=== PATIENT | male | born 2000 | race Caucasian/White ===

== ENCOUNTER 2019-01-09 19:41 | Inpatient (IN) | payer BC, OTHER ==
--- NOTE | 2019-01-09 19:43 | EDPHY ---
H & P Time Seen by Provider: 01/09/19 19:38 Constitutional: Initial Vital Signs Temperature (C) 36.7 C 01/09/19 19:41 Heart Rate 82 01/09/19 19:41 Respiratory Rate 16 01/09/19 19:41 Blood Pressure 168/84 H 01/09/19 19:41 O2 Sat (%) 98 01/09/19 19:41 O2 Delivery Mode Room Air Allergies/Adverse Reactions: No Known Allergies Allergy (Verified 01/10/19 08:30) Medical Decision Making ED Course/Re-evaluation: CHIEF COMPLAINT: Psychiatric evaluation HISTORY OF PRESENT ILLNESS: The patient is a 18 y/o male with a history of depression and suicide attempts arriving via EMS after a suicide attempt today. For the last 4 months the patient has felt more depressed and increased suicidal ideations. The patient has been home from school ([employer]) for 2 days. Last night he took #20 0.5mg tabs of Clonazepam and #2 Tylenol PM as he was "trying to hurt" himself. This morning his parents noted that the patent was groggy and slept most of the day. His parents had a hard time waking the patient up today, so they called EMS. EMS noted that the patient had stable vital signs. No fever, headache, body aches, lightheadedness, chest pain, heart palpitations, shortness of breath , cough, abdominal pain, urinary or bowel complaints, numbness, paresthesias. REVIEW OF SYSTEMS: A comprehensive 10 system review of systems is otherwise negative aside from elements mentioned in the history of present illness and medical decision making. PHYSICAL EXAM: General Appearance: Alert, well hydrated, appropriate, and non-toxic appearing. Head: Atraumatic without scalp tenderness or obvious injury Eyes: Pupils equal, round, reactive to light and accommodation, EOMI, no trauma , no injection. Ears: Clear bilaterally, no perforation, normal landmarks Nose: Atraumatic, no rhinorrhea, clear. Throat: There is no erythema or exudates, no lesions, normal tonsils, mucus membranes moist. Neck: Supple, 2+ carotid upstroke, nontender, no lymphadenopathy. Respiratory: No retractions, no distress, no wheezes, and no accessory muscle use. Lungs are clear to auscultation bilaterally. Cardiovascular: Regular rate and rhythm, no murmurs, rubs, or gallops. Bilateral carotid, radial, dorsalis pedis, and posterior tibial pulses intact. Good capillary refill all extremities. Gastrointestinal: Abdomen is soft, nontender, non-distended, no masses, no rebound, no guarding, no peritoneal signs. Musculoskeletal: Normal active ROM of all extremities, atraumatic. Neurological: Alert, appropriate, and interactive. The patient has normal DTRs and non-focal cranial nerves, motor, sensory, and cerebellar exam. Skin: No rashes, good turgor, no nodules on palpation. Psych: Expresses suicidal ideations, flat affect. No homicidal ideations or hallucinations. 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 MEDICAL DECISION MAKING: The patient is a 18 y/o male with a history of depression and suicide attempts arriving via EMS after a suicide attempt today. Last night he took #20 0.5mg tabs of Clonazepam and #2 Tylenol PM as he was "trying to hurt" himself. This morning his parents noted that the patent was groggy and slept most of the day. On exam the patient has a flat affect and expresses suicidal ideations. Patient will be placed on an M1 hold. He is comfortable with plan for lab work. Patient is in no acute distress and is hemodynamically stable. We are awaiting psychiatric team's evaluation. Patient has known history of psychiatric disorders and is here for evaluation. Labs ordered; 2L IV NS. 2024: Patient care turned over to Dr. Hester at shift change pending mental health eval. (Landen Boogie) Other Provider: [address] Hester pending mental health evaluation. Patient has been evaluated. Plan will be for placement at [facility] in the morning. 0700 patient has been accepted to [facility] by Dr. Gilmore. I have completed the EMTALA (Jamari Pennington) - Data Points Laboratory Results: Laboratory Results 01/09/19 20:15 01/09/19 20:15 05/14/19 05/14/19 20:15 20:15 Hemoglobin A1c 4.9 % % (4.0-6.0) Estim Average Glucose 94 mg/dL mg/dL (68-126) Total Bilirubin 0.2 mg/dL mg/dL (0.1-1.4) Conjugated Bilirubin 0.2 mg/dL mg/dL (0.0-0.5) Unconjugated Bilirubin 0.0 mg/dL mg/dL (0.0-1.1) AST 30 IU/L IU/L (17-59) ALT 40 IU/L IU/L (21-72) Alkaline Phosphatase 75 IU/L IU/L (38-126) Total Protein 7.3 g/dL g/dL (6.3-8.2) Albumin 4.6 g/dL g/dL (3.5-5.0) Triglycerides 343 mg/dL H mg/dL (40-150) Cholesterol 183 mg/dL mg/dL (140-200) Cholesterol Risk Factr 1.0 (0.2-1.0) LDL Cholesterol, Calc 72 mg/dL mg/dL (60-100) LDL Risk Factor 0.8 (0.2-1.0) VLDL Cholesterol 69 mg/dL H mg/dL (8-25) Non-HDL Cholesterol 141 mg/dL H mg/dL (90-129) HDL Cholesterol 42 mg/dL mg/dL (40-70) LDL/HDL Ratio 1.72 RATIO RATIO (1.00-3.64) Cholesterol/HDL Ratio 4.36 RATIO RATIO (1.00-4.97) Medications Given: Discontinued Medications Sodium Chloride (Ns) 1,000 mls @ 0 mls/hr IV EDNOW ONE; Wide Open PRN Reason: Protocol Stop: 01/09/19 20:06 Last Admin: 01/09/19 20:11 Dose: 1,000 mls Sodium Chloride (Ns) 1,000 mls @ 0 mls/hr IV EDNOW ONE; Wide Open PRN Reason: Protocol Stop: 01/09/19 20:06 Last Admin: 01/09/19 20:11 Dose: 1,000 mls Departure - Departure Disposition: [facility] IP Clinical Impression: Suicidal ideation Intentional clonazepam overdose Qualifiers: Encounter type: initial encounter Qualified Code(s): T42.4X2A - Poisoning by benzodiazepines, intentional self-harm, initial encounter Condition: Fair Report Scribed for: Landen Boogie Report Scribed by: Samina An Date of Report: 01/09/19 Time of Report: 20:07
[2019-01-09] MEDS ORDERED: NS 1,000 ML IV ONE ×2 (20:05)
[2019-01-09 20:20] LABS: PLATELET COUNT 296 10^3/uL (150-400)
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
--- NOTE | 2019-01-10 04:30 | ASMTTCLDSP ---
TLC Discharge Disposition Disposition: Answers: Admit Disposition Notes: Notes: Admit Francine Rosario. Discharge Concerns/Recommendations: Notes: In consultation with [facility] ED physician, Maximo Pennington MD and [facility] on-call psychiatrist, Anjelica Gilmore MD, both concurred that pt appears to meet 27-65 criteria requiring psychiatric hospitalization as the patient appears to be an imminent risk of harm to self due to a mental illness condition. The patient was read the Patient Rights and Responsibilities Statement (placed on chart) and given photocopy of Rights. The patient was given the [facility] prohibited belongings list while in the ED. Was patient given the Answers: Yes Inpatient Behavioral Health Prohibited Belongings List while in the ED? For inpatient Anjelica Gilmore MD admission, the following psychiatrist agreed to accept patient for admission to Behavioral Health ([facility]): Type of Hold: Answers: M1/72-hour Hold Hold initiated by: Answers: Police Date Signed: 01/10/2019 04:29 AM Electronically Signed By:Bart Lezama
[2019-01-10] MEDS ORDERED: MAGNESIUM HYDROXIDE 30 ML UDCUP PO PRN (09:00)
[2019-01-10] MEDS ORDERED: MAG HYDROX/AL HYDROX/SIMETH 30 ML UDCUP PO PRN (09:00)
[2019-01-10] MEDS ORDERED: ACETAMINOPHEN 325 MG TAB PO PRN (09:00)
--- NOTE | 2019-01-10 11:03 | PDMN ---
Medical Necessity Medical necessity: [facility] [id number] Major Depressive Disorder, Adult: Inpatient Care, 3 days: 18 yo w/ unspecified depressive d/o, unspecified anxiety d/o, r/o ADD/ hyperactivity d/o, predominantly inattentive. On M1 hold for risk of harm to self, intentional OD. Admit IP status BEH unit.
--- NOTE | 2019-01-10 14:59 | ASMTBHMTP ---
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 He is living with his father in [place], [place]. The patient arrived via EMS on an M1 hold placed by police after patient attempted overdose via 20 Clonazepam, 5mg. Per 27-65 M1, "Pipe has been severely depressed and suicidal. Approximately three weeks prior he attempted to kill himself via drink and prescription drugs (per his father); last night or today Pipe took an unknown amount of Clonazepam (full bottle) in another attempt to end his life (as told by father). Pipe taken to [facility] The patient and his family adamantly requested that the evaluation be re-assessed and completed tomorrow due to the patient's inability to participate AEB sedated/sleeping presentation. The patient was observed intermittently falling asleep and talking lucidly with his family and this bond underwriter. The patient's family expressed significant concern for the patient's safety and well being. The patient and his father came to [place] to visit the patient's mother and brother. Per the patient's father, Amandeep, he and the patient "had the best night together" and he couldn't understand why his son attempted suicide. He reported that the patient stated he planned this attempt two weeks prior. He attempted suicide approximately four-six weeks ago via etoh and medication overdose including a video and six page letter "saying goodbye" to friends and family. The patient reportedly "past out" and did not complete. The patient had also recently started trialing sleep, anti-anxiety, and anti-depression medications with little success. The patient experienced the following side effects: visual hallucination and sleep walking. The patient began living with his father early this year when his symptoms of depression and anxiety increased. Historically, the patient was abusing etoh, diagnosed and treated for ADD, and achieving little to no sleep. The patient's father stated, "He can't stop his mind and he desperately wants to." The patient began reporting "visual snow" in June of 2018 and continues to complain of hallucination including "shadows" or "black figures." Although the patient was unable to visit a neurologist he pursued specialty care and had multiple interventions including a cat scan. The "visual snow" was so severe that the patient was unable to drive. The patient's father complained of the patient's fatigue, anhedonia, and reported him having a congoing and onsistent low heart rate and low blood pressure. He suspects that the patient will present as withdrawn and guarded in an effort to avoid bh intervention. Patient's stated presenting problems: Notes: "I can't fight off my own demons myself...my depression and anxiety". Patient's goals for treatment: Notes: 1) To establish "whether in addition to diagnosis of depression and anxiety, I may have an underlying illness...like schizophrenia or bipolar". 2) To try a new medication that would work better. Patient's strengths: Notes: When ct is feeling well he cites empathy, having a big heart, being a good people person, making people feel good" as some of his strengths. Identify supports outside of hospital: Notes: Ct cites his parents, his brother and friends are all good supports. He has tried several "psychotherapists", but has not found one that works. Discharge criteria: Notes: Suicidal ideation will resolve and ct will have a plan to safely manage recurrent suicidal ideation. Master Treatment Plan Required Signatures Psychiatrist signature: Answers: Psychiatrist: RN on-shift signature: Answers: RN: Patient signature: Answers: Patient: Date Signed: 01/10/2019 02:58 PM Electronically Signed By:Mercedez Jarrett
--- NOTE | 2019-01-10 17:14 | BAPA ---
[f rep st] ADMISSION PSYCHIATRIC ASSESSMENT DATE OF SERVICE: 01/10/2019 CHIEF COMPLAINT: " I'm just totally wiped out and at wits end." HISTORY OF PRESENT ILLNESS: Patient is a 18-year-old, male with a history of depression an d anxiety dating back to March of 2018. He states at that time, he had a "stress-induced break from reality" when he had the situation occur with a girlfriend. He states they got into an argument and that she drank an entire 5th of vodka at a alliance party. He states that he saw 1 of his friends carrying h er from the house bleeding from the mouth on the way to the hospital and that he became convinced gray t she had . He states that he went to the hospital, was not allowed to see her, and that her par ents were angry with him, and that this worsened his fears that she had and no 1 could convince him otherwise. He states that the fixed belief resolved, but that he feels like "my mind was changed after that." He states that he is "afraid I am either bipolar or schizophrenic and I'm going to be mentally ill for the rest of my life." He states that since that time, he has had pervasive anxiety and feeling anxious and worried throughout the day, and distracted from his schoolwork and other acti vities. He states that he feels more overall intensity of emotions and is more sensitive to interact ions with other people. He has also been troubled by sensory experiences such as being sensitive to light and troubled by excessive floaters in his eyes. He also reports being troubled by increasing t innitus. He believes that the doctors he has seen for these problems have essentially dismissed him and not taking him seriously, including mental health providers, whom he states, "just try 1 pill aft er another and nothing helps." He reports being treated with Adderall for attention deficit/hyperact ivity disorder and stated that this has been helpful to him over time, but is not currently helpful. He was switched from the Adderall to Concerta, but this has also not been helpful. He sees a nurse practitioner named Danna Badillo at [facility] in [place], [place]. She states that the prob lems with attention, concentration, focus, and his sensory issues have caused him to drop out of CX in the springester this year. He states that he has 6 semesters completed and that he plans to return in the fall, but is concerned that he will not be able to. In addition to these symptoms, he complains of a depressed mood throughout the day, sometimes worst in the morning, pervasive anxiet y with occasional panic attacks, "visual snow" and tinnitus, and "generally feeling physically ill l bhavana I'm dying." The physical symptoms include generalized muscular weakness and a concern he may be experiencing muscular atrophy, decreased energy and motivation, lethargy, and impotence. In addition to the symptoms, he experiences intense feelings of helplessness and hopelessness primarily related to a fear that he will remain mentally ill and some residual shame and guilt over the situation with his ex-girlfriend. The patient was brought to the hospital yesterday by his parents after they had a hard time waking up during the day. He had come to [place] to visit his mother and brother with his father from their home in [place], [place]. He had reported to be in a good mood and his father stated that they had a dakota y nice interaction the night before. The patient states that he rather impulsively took an overdose of his clonazepam and alcohol because "I had an opportunity and I took it." He agrees that he was louis ving a nice time with his family and there was no specific stressor, but that he had felt like he was "at wits end" for the past 2-3 weeks and had essentially decided to kill himself via overdose as leia n as he had got a chance. Exactly why being out of town with his family presented that chance is unc lear, and patient claims to be somewhat confused about the events at this time. He did state, alda paredes, that he had a clear expectation of dying and did not disclose the overdose but went bad. He was e xcessively sedated the next morning when his parents had trouble arousing him into the afternoon and they took him to the hospital. There, he disclosed that he had taken a month's supply of clonazepam up to 25 0.5 mg tablets. He denies taking other of his medications. Today, he states that he believ es it was "a spiritual experience" and that "I believe got intervened and saved me." He states that he also was upset by the affect that this had on his family and "I would never do anything like that again." He states he is glad he did not and that he needs to somehow figure out his physical and psychiatric issues so he can feel better. PAST PSYCHIATRIC HISTORY: Patient has previously taken Lexapro, Lunesta, and his current medicines. He thinks there may be others, but he cannot remember the names. The patient's father apparently louis s this information, but I have not been able to reach him by phone on 2 occasions today. The patient has no previous psychiatric hospitalizations and may have had a previous suicide attempt about 10 mo nths ago where he had another overdose of pills and alcohol, but he denies that this was an actual at tempt. He did, however, record a video of himself and saying goodbye to his family and wrote a suici de note, but he states that this was something he had thought about doing but did not actually do. ALLERGIES: No known medical allergies. PAST MEDICAL HISTORY: Essentially noncontributory other than the tinnitus and the floaters and his o ther physical complaints. SOCIAL HISTORY: Patient lives in a home in [place], [place] with several classmates. He has had 6 semes ters at [employer] studying communications. 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 He notes no other specific stressors at this time. He states that his father is his primar y support and describes him as his best friend. SUBSTANCE ABUSE HISTORY: Patient denies any regular use of substances other than alcohol. He states that he last smoked marijuana in October and is unable to explain why it would be positive on his urin e drug screen here. Denies any other drug use. FAMILY HISTORY: Noncontributory per patient report. ADMISSION LABORATORY: CBC is normal. Serum chemistries are normal. Liver function is normal. Trig lycerides are up at 343, but remainder of lipid profile is normal. Urine drug screen is positive for marijuana. Alcohol is less detectable. MENTAL STATUS EXAMINATION: A healthy-appearing robust male. He is pleasant and cooperativ e and interacts appropriately with the examiner. His affect is somewhat sleepy, blunted, stable, and appropriate. His mood is described as "bad." His thought process is linear and goal directed. His thought content reveals no evidence of psychosis. He is alert and oriented to person, place, time, situation, and his sensorium is clear. He denies any thoughts of suicide at this time, stating that he is glad he did not . His intellect appears to be at least average as evidenced by his educatio nal and occupational histories, fund of knowledge, and vocabulary. His insight and judgment appear t o be fair. IMPRESSION: Unspecified depressive disorder, attention deficit hyperactivity disorder by history, re cent benzodiazepine overdose, academic problems, employment problems, possible financial problems, po ssible alcohol use disorder. 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 He states that he did this on purpose with th e expectation of dying due to reasons that are somewhat unclear. He states that he has been sufferin g since the events that occurred last March and that this has gotten worse over the last several wee ks. He may have had another overdose in the recent past and this definitely seemed concerning given the fact that he had a suicide note and a suicide video. He minimizes this. He does not believe gray t his medicines have been helpful now or in the past and states that nothing has seemed to make a dif ference. PLAN: 1. Admit to behavior health services inpatient unit on M1 hold. 2. I will obtain collateral information from patient's family as soon as I can contact them. I have called his father twice at the number supplied and it rings 7 or 8 times, but it does not go to [employer] email. Will also contact the patient's outpatient provider, Abigail Badillo in [place], [place], and see if she has useful information. 3. Will place patient on suicide precautions and monitor for any acts of self-harm; though, he kaley bradshaw is cooperative and interactive. 4. Will hold medications today, as she had this overdose just yesterday; though, may consider restar ting them tomorrow if this is the preferred plan by the patient and his outpatient provider. Will en migue patient in individual, group, and milieu psychotherapies, as well as family therapy to better un derstand the origins of some of these self-destructive impulses and plot a course for the future. ESTIMATED LENGTH OF STAY: 3-5 days. /[id number]/MODL
[2019-01-11] MEDS: NICOTINE POLACRILEX 2 MG GUM B PRN ×2 (13:29→20:55)
--- NOTE | 2019-01-11 13:43 | ASMTCMCOM ---
CM Note CM Note Notes: Pt. reports "doing better actually". Pt. reports he "didn't wake up with anxiety". Pt. reports "haven't been on meds for last two days". Pt. reports he slept "pretty good". Pt. reports getting enough to eat and attending groups. Pt. reports not currently on any medications. Pt. reports when meeting with provider yesterday he was "out of it" and is interested in medications. Pt. reports planning on driving to [place], [place] upon discharge with his father. Pt. reports wanting a new provider in [place]. Pt. reports he stopped drinking in May. Pt. stated he took last semester off for "finanical concerns" adding he plans to return to school in the fall. Pt. 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 Pt. denied SI, HI, AVH and paranoia. Pt. presents as alert, calm, friendly, good eye contact, groomed, and cooperative. Staff report pt. sleeping 8 hours and having no scheduled medications. CC to research BC/BS providers in [place], [place]. Family meeting scheduled for today at 3:00pm with [facility]. Date Signed: 01/11/2019 01:41 PM Electronically Signed By:Mary Buck
--- NOTE | 2019-01-11 15:13 | PDGENHP ---
History and Physical History and Physical: My 1st encounter with patient, his 1st admission to [facility] CC: I am asked to do internal medicine consultation for this patient being admitted to Behavioral Health Unit HISTORY: This patient comes in after a suicide attempts with overdose of benzodiazepine sedative as well as a couple tablets of Tylenol without evidence of Tylenol toxicity. He was sedated and hard to arouse when his parents found him at home and they called for paramedics who brought him to the hospital. He did not need any resuscitation and he has awakened now and is engage with the mental health team on the unit here. He does have a history of anxiety and depression and prior suicide attempt. In terms of current symptoms the patient says he feels physically well although he does mention to me that since around May or June he has had some continuous mild sense of numbness in the hands and feet and all fingers and toes without burning pain or any neurologic weakness. The rest of his Neurology functions are all intact as I review them. He had been binge drinking quite hard from age 14 to age 18 right up to the point of onset of these symptoms drinking as many as 15 beers per day and drinking typically at least 3-4 days per week. He has been largely sober since May 2018 with a couple of brief episodes of binge drinking in the meantime. He does not use any street drugs. His only other physical symptom at this time is difficulty with erections that have been troubling him over the last 3-4 months. Prior to that he had normal sexual function. He has had no physical injury to the genitalia and no history of abuse. He is quite worried about this symptom and has difficulty engaging in relationship. He has not been an athlete but normally exercises quite regularly. He has stopped exercising of the last 4 months or more due to mental health issues. ROS: A comprehensive 10 system review revealed no other significant findings PAST MEDICAL HISTORY: Binge drinking history, quite heavy for several years, currently sober Depression and anxiety Prior suicide attempt FAMILY MEDICAL HISTORY: Pancreatic cancer, lung cancer, ALS SOCIAL HISTORY: Finished 3 years of college at [employer] but has dropped out at the time being for health reasons Not working on a job at this time Currently sober not using drugs other than some marijuana at times MEDICATIONS: The patients list has been reconciled by our clinical pharmacist in the EMR. I have reviewed the list and ordered appropriate medicines. PHYSICAL EXAMINATION: Vital Signs: All stable without fever Examination: General: alert, oriented, good mentation, relaxed Affect is appropriate for his situation Skin: warm, dry, good color, no rash HEENT: normal Neck: no mass or jvd Resps: relaxed Lungs: clear breath sounds Heart: regular, no murmur Abdomen: soft, nondistended, nontender, +BS, no mass Upper Extremities: normal Lower Extremities: no edema, warm No Bleeding or bruising Neurologic: normal speech/language, normal occupational health professional, no focal weakness, normal reflexes, no definite objective sensory abnormalities IV site: looks normal LABORATORY DATA (from ER assessment): Unremarkable CBC Unremarkable basic metabolic panel Normal liver panel Hemoglobin A1c 4.9 Lipid panel with triglycerides 343 ASSESSMENT: * Suicide Attempt * Depression/Anxiety disorder * Hx of Severe Alcohol Abuse currently sober * Suspected mild peripheral neuropathy, likely due to EtOH * psychogenic erectile dysfunction * Tox screen non negative for marijuana but negative for all others * Tylenol level of 12-salicylate and alcohol levels PLANS: * Will check TSH for assessment of neuropathy; at the moment other than avoiding alcohol there is no other measure for needed for further assessment or treatment of this neuropathy * I spent extensive time in conversation related to maintaining sobriety, risks of alcohol for him, daily exercise and dietary measures for his symptoms * reassured him regarding erectile issues, discussed some approaches to begin managing that but may need ongoing counseling for that * I strongly recommended daily physical exercise including outdoor activities * Discussed dietary health with him
[2019-01-12 06:40] VITALS: BP 106/61
[2019-01-12] MEDS: NICOTINE POLACRILEX 2 MG GUM B PRN (09:56)
--- NOTE | 2019-01-12 13:06 | ASMTBHDC ---
Notes Note: Notes: CC briefly met with pt. Pt. attended treatment team planning. Pt. signed ROIs for providers in [place], [place]. Pt. reports feeling better and ready for discharge. CC scheduled pt. with an intake appointment with EZRA Garcia with [facility]. CC provided pt with therapist referrals and sleep provider referrals. CC met with pt and his family about discharge process and follow up care. FOC asked about getting an CLARA animal for the pt. made aware of request. Pt. has an intake on 01/31/19 @ 11:00am. Date Signed: 01/12/2019 01:05 PM Electronically Signed By:Mary Buck
--- NOTE | 2019-01-12 15:10 | BDS ---
[f rep st] BEHAVIORAL HEALTH DISCHARGE SUMMARY REASON FOR ADMISSION: Patient is a 18-year-old male with a history of some substance abuse issues and recent mood and anxiety problems. He presented to the emergency department after having taken an intentional overdose of clonazepam and alcohol. He had been visiting [place] with his ousmane paredes from their home in [place], [place]. They had a nice time visiting with family, and when he went to be d that night he seemingly impulsively took about a month's supply of his clonazepam 0.5 mg and alcoho l. When asked about this, he stated that he had been thinking of suicide for 2 weeks and this was an opportune time. A full description of the events preceding admission can be found in his admission history dated 01/10/2019. ADMITTING DIAGNOSES: 1. Unspecified depressive disorder. 2. Attention deficit hyperactivity disorder by history. 3. Recent benzodiazepine overdose. 4. Academic problems. 5. Employment problems. 6. Possible financial problems. 7. Possible alcohol use disorder. ADMITTING PHYSICAL EXAMINATION: Performed by Dr. Mark Fair, revealed possible mild peripheral n europathy, otherwise unremarkable. ADMISSION LABORATORY: CBC was normal. Serum chemistries were normal. Triglycerides were up at 343 and lipid profile was otherwise normal. Urine drug screen was positive for marijuana. HOSPITAL COURSE: Patient is admitted to Behavioral Health Services inpatient unit on an M1 hold. He was initially quite sedated, slept all night in the emergency department and then most of the next d ay on the unit. He was interactive, however, was able to arouse and talk with me on the 1st morning of admission. He stated that he was simply suffering and noted numerous generalized symptoms. He st ates that he had lost hope that he would ever be any better and was very afraid he was going to have a chronic mental illness like schizophrenia. He related a history of having what he described as a "stress-induced psychosis" last March. He sta isabelle that he was having trouble with his girlfriend at the time and that he was drinking heavily. He states that he drank excessively and took his Adderall for 4 days and basically did not sleep. Jorge Luis santa this time, his girlfriend overdosed on alcohol and had to go to the hospital and he believed that s he was . He continued to believe she was for some time and began posting on social media, n ot only that and other somewhat paranoid thoughts, but grandiose thoughts that he had discovered the system of the universe and was charting the stars. His friends and family immediately noticed that t his was abnormal. He went to stay with his father and the symptoms slowly abated over a period of we eks. Since that time, the patient states that he has been unable to concentrate, that his sleep is very po or and non restful. His muscles are weak and he has experienced increasing amounts of physical sympt oms. He is primarily focused on the symptoms of tinnitus and what he calls "visual snow." This incl udes floaters, but also what he was told were ocular migraine symptoms such as flashing lights or str eaks. He states that these are distracting to him and are significantly decreasing his quality of li fe. He also states that he has had erectile dysfunction which he takes as a sign that he is essentia lly dying. I discussed with him the origins of some of the physical symptoms, emotional symptoms, and the likeli inman that he had a manic episode in March. I also met with him and his family to review these thoug hts. What came to light was a long history of REM sleep disturbance and a family loading on his [facility] er's side with his father and grandfather both having the same problems. The patient described hypna gogic and hypnopompic hallucinations, sleep paralysis, sleep walking, and other REM behavioral distur bances. He described essentially zero REM latency and discontinuous non restful sleep. I am convinc ed that if he were able to have a sleep study, which he was not, we would have been able to document not only excessive REM activity but, again, a lack of REM latency and multiple awakenings. With this , I believe it certainly lays the likely foundation for his mood problems. It also describes his phy sical symptoms. I reviewed with the patient and his family that using an antidepressant with a history of eber and i nadequate mood stabilization, is probably not a good idea. He also had the suicidality emerge during the treatment with the sertraline, and so I recommended that they discontinue it. I also recommende d that they discontinue use of any amphetamines right now as this is could be harmful to both his moo d and sleep, but place him at risk for further psychosis. His family notes that while the Adderall a nd now Concerta did help with his attention and concentration, it had caused him to be extremely tens e and irritable. Ultimately, the family agreed with these observations and agreed to continue the cl onazepam. I recommended that he have a trial of the clonazepam at 0.5 to 1 mg at h.s. for at least 2 weeks ever y night at bedtime. He had not taken it before he took the overdose of it. Therefore, we could not know whether it would help. I also gave them a choice of titrating Lamictal which he had taken brief ly for the ocular migraines, and they preferred the trial of clonazepam and then reassessment. corporate wellness coordinator was able to schedule an appointment with a psychiatrist in [place] for him to follow up as he did not wish to return to the nurse practitioner he had previously seen and a sleep study. CONDITION AT DISCHARGE: Stable. He was seen in treatment planning meeting and stated that he was up beat and hopeful and was excited to see if his sleep would normalize and if this then would lead him to feel physically and mentally well. He adamantly denied any thoughts of suicide or plan to harm [facility] DISCHARGE MEDICATIONS: Clonazepam 0.5 to 1 mg p.o. at bedtime, #21 tablets called to the [facility] [address] in [place]. DISCHARGE DIAGNOSES: 1. REM sleep disorder. 2. History of eber. 3. Alcohol use disorder, moderate to severe. 4. Recent suicide attempt. 5. Academic problems. 6. Occupational problems. 7. Financial problems. DISPOSITION: Patient left the hospital with his mother and father. LEGAL COURSE: Patient was discharged at the expiration of his M1 hold. CODE STATUS: The patient was a full code throughout his stay. There are no pending labs or studies at the time of discharge. The patient was administered alcohol, tobacco, metabolic, and cannabis screenings. He was receptive to interventional counseling on the dangers of his alcohol use, and stated that he was able to mainta in 5-month sobriety recently and could do that again. He was attracted to a general healthy lifestyl e approach. He denied using marijuana except for one time in October and was unable to explain why his urine drug screen would contain that. /[id number]/MODL
== END 2019-01-12 13:55 | disposition home or self-care (01) | DRG 156 ==
LOC: EDUNIT# → BBEH 01-10 08:35
PROVIDERS: ADMIT Internal Medicine; ATTEND Psychiatry & Neurology Psychiatry
DX: G47.52 REM sleep behavior disorder (principal); T42.4X2A Poisoning by benzodiazepines, intentional self-harm, initial encounter; Z72.89 Other problems related to lifestyle; Z55.8 Other problems related to education and literacy; Z56.9 Unspecified problems related to employment; Z59.9 Problem related to housing and economic circumstances, unspecified; F41.9 Anxiety disorder, unspecified; F32.9 Major depressive disorder, single episode, unspecified
CPT/HCPCS: 80305; G0480